=== PATIENT | female | born 1975 | race Caucasian/White ===

== ENCOUNTER 2016-06-26 22:15 | Emergency (ER) | payer MEDICARE ==
[2016-06-26] MEDS ORDERED: BUPIVACAINE HCL/PF 5 MG/ML 10ML VIAL IV ONE (22:23)
[2016-06-26] MEDS ORDERED: BUPIVACAINE HCL/PF 5 MG/ML 10ML VIAL IJ ONE (22:30)
--- NOTE | 2016-06-26 22:32 | ED Physician Documentation ---
General Adult - HISTORIAN Historian: patient - HPI Stated Complaint: foot lac Chief Complaint: Laceration/Recheck/Suture Additional Information: Cut left toe on a skil saw. Says she was using it on the floor. Tetanus within last 5 years. Onset: minutes - ROS CONST: no problems - PAST HX Past History: other (psych: Four prescription meds includin zoloft, abilify, seroquel, and a fourth. Doesn't alwasy take them.) Surgeries/Procedures: Allergies/Adverse Reactions: Allergies Allergy/AdvReac Type Severity Reaction Status Date / Time No Known Allergies Allergy Verified 06/26/16 23:04 Home Medications: Ambulatory Orders Medication Instructions Recorded Aripiprazole [Abilify] 10 mg PO D 06/26/16 Quetiapine Fumarate [Seroquel] 100 mg PO HS 06/26/16 Sertraline HCl [Zoloft] 40 mg PO D 06/26/16 - SOCIAL HX Smoking History: cigarettes Alcohol Use: occasionally Drug Use: marijuana - FAMILY HX Family History: No (no signif) - REVIEWED ASSESSMENTS Nursing Assessment Reviewed: Yes Vitals Reviewed: Yes ED Results Lab/Radiology - Orders Orders: ED Orders Category Date Time Status Bupivacaine HCl/Pf [Marcaine 0.5%] Med 06/26/16 22:23 Discontinued 50 mg IV .STK-MED ONE General Adult Physical Exam - PHYSICAL EXAM GENERAL APPEARANCE: moderate distress (cursing, rocking) EENT: eye inspection normal, ENT inspection normal NECK: supple RESPIRATORY: no resp distress RECTAL: deferred BACK: normal inspection SKIN: warm/dry, normal color (multiple tattoos) EXTREMITIES: normal range of motion, no edema, other (right first toe with 6 cm avulsion/lac medial volar surface, no active bleeding) NEURO: CN's nml as tested, motor nml, sensation nml Discharge Clincal Impression: Toe laceration Qualifiers: Encounter type: initial encounter Toe: great toe Damage to nail status: without damage Foreign body presence: without foreign body Laterality: right Qualified Code(s): S91.111A - Laceration without foreign body of right great toe without damage to nail, initial encounter Additional Instructions: Keep the area clean and dry. Keep the right foot elevated as much as possible for the next 3 days. Take all the antibiotics as prescribed until they are completely gone. Home Medications: Ambulatory Orders Aripiprazole [Abilify] 10 mg PO D 06/26/16 Quetiapine Fumarate [Seroquel] 100 mg PO HS 06/26/16 Sertraline HCl [Zoloft] 40 mg PO D 06/26/16 Condition: Good Disposition: 01 HOME, SELF-CARE Decision to Admit: NO Decision Time: 23:05
[2016-06-26] MEDS ORDERED: NEOMYCIN SU/BACITRAC ZN/POLY 1 EACH OINT.PACK TP ONE (22:56)
[2016-06-26] MEDS ORDERED: CEPHALEXIN 250 MG CAPSULE ONE (23:19)
[2016-06-26] MEDS ORDERED: CEPHALEXIN 250 MG CAPSULE PO ONE (23:20)
[2016-06-26 23:59] VITALS: BP 110/77
== END 2016-06-26 23:21 | disposition home or self-care (01) ==
LOC: ED 22:15
DX: S91.111A Laceration without foreign body of right great toe without damage to nail, initial encounter (principal); X58.XXXA Exposure to other specified factors, initial encounter; Y93.9 Activity, unspecified; Y99.9 Unspecified external cause status
CPT/HCPCS: J3490 ×2; 99283